=== PATIENT | female | born 1975 | race Caucasian/White ===

== ENCOUNTER 2016-12-10 12:34 | Emergency (ER) | payer BC ==
[~2016-12-10] VITALS: Ht 162.6 cm; Wt 63.6 kg
[2016-12-10 12:47] VITALS: TEMP 37.2; Ht 162.6 cm; Wt 63.6 kg
[2016-12-10] MEDS ORDERED: QUET1TAB34 PO (13:08)
[2016-12-10] MEDS ORDERED: LAMO200T38 PO (13:08)
[2016-12-10] MEDS ORDERED: ALPR1TAB3 PO (13:08)
[2016-12-10] MEDS ORDERED: ACET325T96 PO (13:08)
--- NOTE | 2016-12-10 13:54 | DIAGNOSTIC IMAGING REPORT ---
RIGHT ANKLE 3 VIEWS CLINICAL HISTORY: Right ankle pain and swelling. FINDINGS: 3 views of the right ankle are obtained. No prior studies are available for comparison at the time of dictation. The skeletal structures are osteopenic. No fracture is seen. The ankle mortise is intact. There is no joint effusion. Soft tissue edema is present throughout the visualized right lower extremity. IMPRESSION: Soft tissue edema with no radiographic evidence of right ankle fracture. Electronically signed by: Vahid Sosa M.D. 12/10/2016 1:52 PM Dictated Date/Time: 12/10/2016 1:52 PM
--- NOTE | 2016-12-10 13:59 | DIAGNOSTIC IMAGING REPORT ---
RIGHT FOOT 3 VIEWS CLINICAL HISTORY: Right foot pain and swelling. FINDINGS: 3 views of the right foot are obtained. No prior studies are available for comparison at the time of dictation. The skeletal structures are osteopenic. No fracture is seen. The joint spaces of the foot are well-maintained. Soft tissue edema is present in the hindfoot and around the ankle. IMPRESSION: Soft tissue swelling with no acute bony abnormality seen in the right foot. Electronically signed by: Vahid Sosa M.D. 12/10/2016 1:58 PM Dictated Date/Time: 12/10/2016 1:57 PM
--- NOTE | 2016-12-10 14:12 | EMERGENCY ROOM VISIT NOTE ---
ED Visit Note First contact with patient: 12:54 CHIEF COMPLAINT: Right Ankle and Foot pain HISTORY OF PRESENT ILLNESS: This 41-year-old female patient presents to the emergency department 5 days after sustaining an injury to the right ankle and foot with what she believes to have been a twisting, inversion motion while standing up to get out of the tent. The patient states she is in town to go camping, and when standing, she twisted the ankle over the mattress. She reports some mild swelling up to the middle of her ceja. She states the pain yesterday got worse after she was walking on it. The patient denies numbness, but does report occasional tingling. She states she is having pain from the bottom of her foot to the mid ceja. The patient did take Tylenol this morning at approximately 10:30 without relief. The patient complains of pain along the inside and outside of the ankle. The patient rates the pain as throbbing and 6/ 10. The patient is able to bear weight on the foot. Constant pain, worse with movement, weight bearing, and the dependent position. No knee pain, the patient is able to move their toes. No numbness or weakness of the foot, no laceration. The patient has not had a previous fracture to this ankle or foot. The patient denies any other injury. REVIEW OF SYSTEMS: A 6 system review of systems was completed with positives and pertinent negatives listed in the HPI. ALLERGIES: Iodine, nitrates, shellfish MEDICATIONS: Xanax, Lamictal, Seroquel PMH: Anxiety, depression, sleep disturbance SOCIAL HISTORY: The patient is from out of town. She lives with her family. The patient doesn't to smoking one pack cigarettes per day. She denies drug or alcohol use. PHYSICAL EXAM: Vital Signs: Reviewed Nurse's notes, vital signs stable. GENERAL : This is a 41-year-old female, no acute distress, but appears in pain, well- developed, well-nourished. MENTAL STATUS: Alert, oriented to person place and time, and cooperative. MUSCULOSKELETAL: The right ankle is swollen and tender over the lateral and medial malleoli, but the skin is intact and there is no ligamentous instability. There is no fifth metatarsal tenderness. There is mild tenderness over the rest of the foot. There is no calf or tibia/fibular tenderness. There is no visual deformity. The foot and toes are warm and well- perfused. Dorsalis pedis pulse 2+. Sensation to pain and light touch is intact. Capillary refill less than 2 seconds. RADIOLOGY: Right Ankle X-Ray: FINDINGS: 3 views of the right ankle are obtained. No prior studies are available for comparison at the time of dictation. The skeletal structures are osteopenic. No fracture is seen. The ankle mortise is intact. There is no joint effusion. Soft tissue edema is present throughout the visualized right lower extremity. IMPRESSION: Soft tissue edema with no radiographic evidence of right ankle fracture. Right Foot X-Ray: FINDINGS: 3 views of the right foot are obtained. No prior studies are available for comparison at the time of dictation. The skeletal structures are osteopenic. No fracture is seen. The joint spaces of the foot are well-maintained. Soft tissue edema is present in the hindfoot and around the ankle. IMPRESSION: Soft tissue swelling with no acute bony abnormality seen in the right foot. EMERGENCY DEPARTMENT COURSE: I examined the patient. X-rays of the foot and ankle were reviewed by myself and read by radiology and reveal no acute abnormalities. A gel splint was applied to the ankle under my direction and the position was satisfactory. Neurovascular status was rechecked and intact. The patient was instructed on the use of crutches. The patient was discharged home in good condition. DIFFERENTIAL DIAGNOSIS: Ankle fracture, foot fracture, ankle contusion, foot contusion, distal tibia or fibula fracture, ankle sprain, and others DIAGNOSIS: Right Ankle sprain DISCHARGE INSTRUCTIONS: Acetaminophen(Tylenol) may be used for fever or pain. Use 1000mg every six hours as needed. Avoid using more than 3000mg in a 24 hour period. Ice compresses for 20 minutes at a time four times daily for 2-3 days. Use the crutches as instructed. Rest and elevate your injury. Do not get the splint wet. If your splint feels excessively tight, you have worsening pain, develop numbness or tingling, or your digits appear blue, loosen the esme splint. If your symptoms are not quickly relieved return to the ER for re-evaluation. Return to the ER immediately for any numbness, tingling, severe pain, extreme swelling in the extremity or as needed. Call [facility], [phone], in 5-7 days if no improvement, to arrange follow up for your injury. Follow-up with your primary care physician in 2 to 3 days for a recheck of your current condition. You should get established with a PCP if you do not already have one. Current/Historical Medications Scheduled Lamotrigine (Lamictal), 200 MG PO DAILY Quetiapine Fumarate (Seroquel), 100 MG PO DAILY Scheduled PRN Acetaminophen Tab (Tylenol), 325 MG PO UD PRN for Pain Alprazolam (Xanax), 1 MG PO BID PRN for Anxiety/Agitation Allergies Coded Allergies: Iodine (Unverified Allergy, Severe, DUE TO SHELLFISH ALLERGY, 12/10/16) Nitrates, Organic (Unverified Allergy, Severe, SEVERE MIGRAINE, 12/10/16) Shellfish Allergy (Unverified Allergy, Severe, ANAPHYLAXIS, 12/10/16) Vital Signs Date Time Temp Pulse Resp B/P (MAP) Pulse Ox O2 Delivery O2 Flow Rate FiO2 12/10/16 12:47 37.2 96 20 127/69 100 Room Air Departure Information Impression Primary Impression: Right ankle sprain Dispostion Home / Self-Care Condition GOOD Referrals Ananth Sher M.D. Patient Instructions My [facility] Additional Instructions ORTHOPEDIC INSTRUCTIONS: Acetaminophen(Tylenol) may be used for fever or pain. Use 1000mg every six hours as needed. Avoid using more than 3000mg in a 24 hour period. Ice compresses for 20 minutes at a time four times daily for 2-3 days. Use the crutches as instructed. Rest and elevate your injury. Do not get the splint wet. If your splint feels excessively tight, you have worsening pain, develop numbness or tingling, or your digits appear blue, loosen the esme splint. If your symptoms are not quickly relieved return to the ER for re-evaluation. Return to the ER immediately for any numbness, tingling, severe pain, extreme swelling in the extremity or as needed. Call [facility], [phone], in 5-7 days if no improvement, to arrange follow up for your injury. Follow-up with your primary care physician in 2 to 3 days for a recheck of your current condition. You should get established with a PCP if you do not already have one. Problem Qualifiers Primary Impression: Right ankle sprain Encounter type: initial encounter Involved ligament of ankle: unspecified ligament Qualified Codes: S93.401A - Sprain of unspecified ligament of right ankle, initial encounter
[2016-12-10 14:36] VITALS: BP 118/74; PULSE 72; O2SAT 98
== END 2016-12-10 14:39 | disposition home or self-care (01) ==
LOC: C.EDB 12:35 → C.EDD 14:39
DX: S93.402A Sprain of unspecified ligament of left ankle, initial encounter (principal); X58.XXXA Exposure to other specified factors, initial encounter; F41.9 Anxiety disorder, unspecified; F32.9 Major depressive disorder, single episode, unspecified; Z79.899 Other long term (current) drug therapy; Z88.8 Allergy status to other drugs, medicaments and biological substances; Z91.018 Allergy to other foods; Z91.09 Other allergy status, other than to drugs and biological substances